=== PATIENT | female | born 1995 | race Asian ===

== ENCOUNTER 2018-06-19 16:34 | Emergency (ER) | payer OTHER ==
[~2018-06-19] VITALS: Ht 167.6 cm; Wt 64.8 kg
[2018-06-19 16:53] LABS: BASOPHIL (%) 0.3 % (0-1); EOSINOPHIL (%) 2.1 % (0-5); EOSINOPHIL COUNT 0.3 K/uL (0-0.3); HEMATOCRIT 34.3 % (36.0-46.0); HEMOGLOBIN 11.9 G/DL (11.9-15.5); IMMATURE GRANULOCYTE (%) 0.6 % (0.0-0.7); LYMPHOCYTE (%) 22.1 % (15-42); LYMPHOCYTE COUNT 3.2 K/uL (1.0-2.8); MCH 31.1 PG (29.0-34.0); MCHC 34.7 G/DL (30.0-36.0); MCV 89.6 FL (83-99); MONOCYTE (%) 5.8 % (3-12); MONOCYTE COUNT 0.8 K/uL (0-0.8); NEUTROPHIL (%) 69.1 % (45-76); NEUTROPHIL COUNT 9.9 K/uL (1.8-6.4); PLATELET COUNT 290 K/uL (156-360); RBC DIS.WIDTH-CV 11.4 % (11.8-14.6); RBC DIS.WIDTH-SD 36.7 % (39-53); RED BLOOD COUNT 3.83 M/uL (3.80-5.20); WHITE BLOOD COUNT 14.3 K/uL (4.1-10.2)
[2018-06-19 17:10] LABS: AMYLASE 117 IU/L (1-118); CHLORIDE 104 MEQ/L (99-109); POTASSIUM 3.8 MEQ/L (3.7-5.4); SODIUM 139 MEQ/L (136-147)
[2018-06-19 17:21] LABS: CREATININE 0.7 MG/DL (0.6-1.3); GFR ESTIMATE (CALCULATED) > 59 mL/min/; GLUCOSE 125 mg/dL (70-99); LIPASE 73 U/L (1.0-51.0); SERUM ETHYL ALCOHOL < 10 mg/dL; UREA NITROGEN (BUN) 15 mg/dL (9-23)
[2018-06-19 17:39] LABS: QUANTITATIVE HCG < 4.0 MIU/ML
[2018-06-19] MEDS ORDERED: MOTRIN800 MG PO (20:58)
[2018-06-19] MEDS ORDERED: PERCOCET 5/31 TABLET PO (20:58)
== END 2018-06-19 21:50 | disposition home or self-care (01) ==
LOC: TRA 16:34
PROVIDERS: Family Medicine
PROC: 2W3CX1Z Immobilization of Right Lower Arm using Splint (ICD-10-PCS; principal; 2018-06-19)
DX: S62.354A Nondisplaced fracture of shaft of fourth metacarpal bone, right hand, initial encounter for closed fracture (principal); S80.11XA Contusion of right lower leg, initial encounter; S20.219A Contusion of unspecified front wall of thorax, initial encounter; S06.0X0A Concussion without loss of consciousness, initial encounter; V49.50XA Passenger injured in collision with unspecified motor vehicles in traffic accident, initial encounter; Y92.410 Unspecified street and highway as the place of occurrence of the external cause
CPT/HCPCS: 70450; 71260; 72125; 73130; 73552; 73564; 74177; 80048; 81003; 82150; 83690; 84702; 85025; 86850; 86900; 86901; 90832; 99281; 99285; G0480; J2270; J2405